=== PATIENT | female | born 1940 | race Caucasian/White ===

== ENCOUNTER 2016-10-06 14:21 | Inpatient (IN) | payer MEDICARE, OTHER ==
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
[2016-10-06 14:56] LABS: Basophils # (A) 0.1 k/uL (0-0.2); Basophils % (A) 1 %; CH 28.8; CHCM 31.5; Eosinophils # (A) 0.1 k/uL (0-0.7); Eosinophils % (A) 1 %; HDW 3.06; Hypochromasia Slight; Luc # (Auto) 0.35; Luc % (Auto) 4; Lymphocytes # (A) 1.6 k/uL (1.0-4.8); Lymphocytes % (A) 19 %; MCHC 30.6 g/dL (31.0-37.0); MCV 91.6 fL (80.0-100.0); Monocytes # (A) 0.9 k/uL (0-1.0); Monocytes % (A) 11 %; Neutrophils # (A) 5.4 k/uL (1.3-7.7); Neutrophils % (A) 65 %; RBC 1.48 m/uL (3.80-5.40); RDW 14.6 % (11.5-15.5); WBC 8.3 k/uL (3.8-10.6); WBC (Perox) 8.41
[2016-10-06 15:09] LABS: ALT 34 U/L (9-52); AST 46 U/L (14-36); Alkaline Phosphatase 65 U/L (38-126); Anion Gap 11 mmol/L; Blood Urea Nitrogen 32 mg/dL (7-17); Calcium 7.7 mg/dL (8.4-10.2); Carbon Dioxide 29 mmol/L (22-30); Chloride 104 mmol/L (98-107); Glucose 104 mg/dL (74-99); Magnesium 1.8 mg/dL (1.6-2.3); Non-African American GFR(MDRD) >60 (>60 ml/min/1.73 sqM); Potassium 3.9 mmol/L (3.5-5.1); Sodium 144 mmol/L (137-145); Total Bilirubin 0.6 mg/dL (0.2-1.3); Total Protein 5.9 g/dL (6.3-8.2)
[2016-10-06 15:11] LABS: INR 1.1 (<1.1); Partial Thromboplastin Time 21.8 sec (22.0-30.0); Prothrombin Time 11.3 sec (9.0-12.0)
[2016-10-06 15:12] LABS: HCT 13.6 % (34.0-46.0); HGB 4.2 gm/dL (11.4-16.0)
--- NOTE | 2016-10-06 15:13 | XR ---
EXAMINATION TYPE: XR chest 2V DATE OF EXAM: 10/06/2016 3:08 PM COMPARISON: Prior chest x-ray 21 October 2015, chest CT first of November 2015 HISTORY: Cough and shortness of breath TECHNIQUE: Frontal and lateral views of the chest are obtained. FINDINGS: Patient is rotated. Heart size may be accentuated by rotation. Interstitium and central va scularity are prominent. Pacemaker is unchanged, there are overlying cardiac leads. Left upper lobe s carring. No pneumothorax or pleural effusion evident. IMPRESSION: Findings could represent pulmonary venous hypertension and interstitial edema. Rotated e xam, correlate follow-up as indicated.
[2016-10-06 15:49] LABS: Creatine Kinase MB 1.5 ng/mL (0.0-2.4)
[2016-10-06] MEDS ORDERED: NALOXONE 0.4 MG/ML 1 ML VIAL IV PRN (16:05)
[2016-10-06] MEDS ORDERED: ACETAMINOPHEN TAB 325 MG TAB PO PRN ×2 (16:05→16:07)
[2016-10-06] MEDS ORDERED: ALBUTEROL NEBULIZED 2.5 MG/3 ML INHALATION PRN (16:07)
[2016-10-06] MEDS ORDERED: LOPERAMIDE 2 MG CAP PO PRN (16:07)
[2016-10-06] MEDS ORDERED: BISACODYL 10 MG SUPP RECTAL PRN (16:07)
[2016-10-06] MEDS ORDERED: MAGNESIUM HYDROXIDE 2,400 MG/10 ML CUP PO PRN (16:07)
[2016-10-06 17:10] LABS: Reticulocyte % 1.8 % (0.5-2.0)
[2016-10-06 17:23] LABS: % Iron Saturation 12.6 % (20-50)
[2016-10-06] MEDS: SODIUM CHLORIDE 0.9% 1,000 ML IV SCH (17:41)
[2016-10-06 19:28] LABS: Glucose,Whole Blood 130 mg/dL (75-99)
[2016-10-06] MEDS: risperiDONE 0.25 MG TAB PO SCH (20:02)
[2016-10-06] MEDS: FERROUS SULFATE 325 MG TAB PO SCH (20:02)
[2016-10-06] MEDS: NYSTATIN 100,000 UNIT/GM OINT 30 GM TUBE TOPICAL SCH (20:02)
[2016-10-06] MEDS: FAMOTIDINE 20 MG TAB PO SCH (20:02)
[2016-10-06] MEDS: ZINC OXIDE 20% OINT 28.4 GM TUBE TOPICAL SCH (20:02)
[2016-10-06] MEDS ORDERED: Potassium Replacement Protocol 1 EACH MISC MISCELLANE PRN (20:09)
[2016-10-06] MEDS ORDERED: RX INFO: IV CONTRAST WAS GIVEN 1 EACH MISC MISCELLANE PRN (20:26)
[2016-10-06] MEDS ORDERED: FUROSEMIDE 10 MG/ML 4 ML VIAL IV STA (20:28)
[2016-10-06 20:54] VITALS: BMI 42.3
[2016-10-06] MEDS ORDERED: POTASSIUM CHLORIDE ER 20 MEQ TAB.ER PO SCH (21:00)
[2016-10-06] MEDS ORDERED: Magnesium Replacement Protocol 1 EACH MISC MISCELLANE PRN (21:14)
[2016-10-06] MEDS: MAGNESIUM SULFATE-D5W PMX 1 GM in DEXTROSE/WATER 1 100ML.BAG IVPB SCH ×2 (21:35→22:32)
[2016-10-06] MEDS ORDERED: CARVEDILOL 6.25 MG TAB PO STA (23:04)
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
--- NOTE | 2016-10-07 01:00 | CT ---
EXAMINATION TYPE: CT chest abdomen w con DATE OF EXAM: 10/07/2016 12:50 AM COMPARISON: 11/11/2015 HISTORY: left axillary hematoma CT DLP: 3274.80 mGycm Automated exposure control for dose reduction was used. CONTRAST: Performed with IV Contrast, patient injected with 100 mL of Omnipaque 300. FINDINGS: There is some patchy infiltrate and atelectasis at the left posterior lung base. There is no evidence of a pneumothorax. I see no displaced rib fracture. There is a 15 x 7 cm area of high density in the subcutaneous tissues in the left axillary region con sistent with an acute hematoma. There is no evidence of aortic dissection. There is mild ectasia of the ascending aorta. Aorta measur es 4.4 cm. There is a pacemaker anterior to the apparent left axillary hematoma. Liver spleen pancreas gallbladder appear normal. Bile ducts are not dilated. There is no adrenal mass . Kidneys show satisfactory contrast opacification. There is no hydronephrosis. Abdominal aorta is at heromatous. There is no retroperitoneal adenopathy. There is no ascites. I see no intestinal wall thi ckening. IMPRESSION: LARGE HIGH ATTENUATION LEFT AXILLARY MASS CONSISTENT WITH AN ACUTE SUBCUTANEOUS HEMATOMA. NO PNEUMOTH ORAX. NO RIB FRACTURE SEEN. ATHEROSCLEROTIC VASCULAR DISEASE. 4.4 CM ANEURYSM OF THE SMA AND AORTA IS STABLE COMPARED TO 11/11/2015 CT SCAN. THERE IS NEW INFILTRATE AND ATELECTASIS IN THE LEFT LOWER LOBE COMPARED TO OLD EXAM.
[2016-10-07 02:35] LABS: Aty Lym Flag Slight; CH 28.4; CHCM 31.6; HCT 24.8 % (34.0-46.0); HDW 3.47; Hypochromasia Moderate; MCH 28.8 pg (25.0-35.0); MCHC 31.8 g/dL (31.0-37.0); MCV 90.6 fL (80.0-100.0); Poikilocytosis Slight; RBC 2.73 m/uL (3.80-5.40); RDW 15.1 % (11.5-15.5); WBC 6.9 k/uL (3.8-10.6); WBC (Perox) 7.08
[2016-10-07 02:38] LABS: HGB 7.9 gm/dL (11.4-16.0)
[2016-10-07 02:46] LABS: Add Differential Manual Differential
[2016-10-07 02:50] LABS: Band Neutrophils % 1.5 %; Metamyelocytes % 2.5 %; Nucleated Red Blood Cells 0 /100 WBC (0-0); Total Cells Counted 200
[2016-10-07 02:51] LABS: Manual Review Performed
[2016-10-07 02:52] LABS: Polychromasia Present
[2016-10-07] MEDS ORDERED: Potassium Replacement Protocol 1 EACH MISC MISCELLANE PRN (03:13)
[2016-10-07] MEDS: POTASSIUM CHLORIDE ER 20 MEQ TAB.ER PO SCH (03:50)
[2016-10-07 07:03] LABS: Aty Lym Flag Slight; CH 28.8; CHCM 32.9; HCT 25.7 % (34.0-46.0); HDW 3.71; HGB 8.5 gm/dL (11.4-16.0); Hypochromasia Slight; MCH 29.1 pg (25.0-35.0); MCV 88.3 fL (80.0-100.0); Mean Platelet Volume 8.1; Poikilocytosis Slight; RBC 2.91 m/uL (3.80-5.40); RDW 15.3 % (11.5-15.5); WBC (Perox) 6.81
[2016-10-07 07:43] LABS: ALT 30 U/L (9-52); AST 50 U/L (14-36); Alkaline Phosphatase 59 U/L (38-126); Anion Gap 10 mmol/L; Blood Urea Nitrogen 31 mg/dL (7-17); Calcium 8.1 mg/dL (8.4-10.2); Carbon Dioxide 27 mmol/L (22-30); Chloride 109 mmol/L (98-107); Glucose 94 mg/dL (74-99); Magnesium 2.2 mg/dL (1.6-2.3); Non-African American GFR(MDRD) >60 (>60 ml/min/1.73 sqM); Phosphorous 3.2 mg/dL (2.5-4.5); Potassium 5.2 mmol/L (3.5-5.1); Sodium 146 mmol/L (137-145)
--- NOTE | 2016-10-07 08:03 | XR ---
EXAMINATION TYPE: XR chest 1V portable DATE OF EXAM: 10/07/2016 6:22 AM COMPARISON: 10/06/2016 INDICATION: Short of breath TECHNIQUE: Single frontal view of the chest is obtained. FINDINGS: The heart size is normal. The pulmonary vasculature is normal. Minimal infiltrate in the retrocardiac region. This may be increasing from prior study. Correlate for atelectasis. Developing pneumonia could be considered. IMPRESSION: 1. Developing retrocardiac infiltrate. Follow-up is recommended.
[2016-10-07 08:31] LABS: Add Differential Manual Differential
[2016-10-07 08:36] LABS: Band Neutrophils % 0.5 %; Myelocytes % 0.5 %; Nucleated Red Blood Cells 1 /100 WBC (0-0); Total Cells Counted 200
[2016-10-07 08:37] LABS: Polychromasia Present; Toxic Vacuolation Present
[2016-10-07 08:39] LABS: Toxic Granulation Present
[2016-10-07] MEDS: DONEPEZIL 5 MG TAB PO SCH (08:58)
[2016-10-07] MEDS: FUROSEMIDE 40 MG TAB PO SCH (08:58)
[2016-10-07] MEDS: FAMOTIDINE 20 MG TAB PO SCH ×2 (08:58→17:35)
[2016-10-07] MEDS: LORATADINE 10 MG TAB PO SCH (08:58)
[2016-10-07] MEDS: ZINC OXIDE 20% OINT 28.4 GM TUBE TOPICAL SCH ×2 (08:59→21:29)
[2016-10-07] MEDS: risperiDONE 0.5 MG TAB PO SCH (08:59)
[2016-10-07] MEDS: POTASSIUM CHLORIDE ER 10 MEQ TAB.ER.PRT PO SCH (08:59)
[2016-10-07] MEDS: NYSTATIN 100,000 UNIT/GM OINT 30 GM TUBE TOPICAL SCH ×2 (08:59→21:29)
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
[2016-10-07] MEDS: CYANOCOBALAMIN 500 MCG TAB PO SCH (13:55)
[2016-10-07] MEDS: SERTRALINE 25 MG TAB PO SCH (16:18)
[2016-10-07] MEDS: SODIUM CHLORIDE 0.9% 1,000 ML IV SCH (16:18)
[2016-10-07] MEDS: FERROUS SULFATE 325 MG TAB PO SCH (17:35)
--- NOTE | 2016-10-07 20:54 | P.PN ---
Subjective 75 yr old with h/o dementia is admitted to the hospital with a HB of aroud 5gm/ dl. Pt was on eliquis for chronic atrial fibrillation. Pt has dementia as baseline, was apparently noted to have a fall 2 days ago as reported to the RN by the NH/ Family. Pt was evaluated in the ED< was noted to have a stable bp, however a repeat HB was 4.2gm/dl. Most of the history is obtained from chart review. Pt has a history of tachy varsha syndrome, a pacemaker was placed in the past VVIR rate adjusted to 60 bpm at baseline, done by DR lam. A hemoccult was negative in the ER. Pt was noted to have overt nausea, hemetemesis or bleeding per rectum. Denies having any chest pain, palpitations or any other complaints , however has dementia at baseline. During my examingtion. Pt complaints of pain in her right axilla, and in her right flank. NO fevers were reported. EKG was noted that pt was in a fib. 10/07/16 No new overnight events. HB is stable no signs of overt bleeding. Objective - Vital Signs Vital signs: Vital Signs Temp 97.2 F L 10/07/16 18:00 Pulse 66 10/07/16 18:00 Resp 20 10/07/16 18:00 BP 131/56 10/07/16 18:00 Pulse Ox 100 10/07/16 18:00 Intake & Output 10/07/16 10/07/16 10/08/16 06:59 18:59 06:59 Intake Total 960 260 Output Total 3400 900 Balance -2440 -640 Weight 130 kg 130 kg Intake: IV 340 160 Magnesium Sulfate-D5w Pmx 200 1 gm In Dextrose/Water 1 100ml.bag @ 100 mls/hr IVPB Q1H LATISHA Rx#: [id number] Sodium Chloride 0.9% 1, 140 160 000 ml @ 20 mls/hr IV . Q24H LATISHA Rx#:[id number] Oral 100 Blood Product 620 Rc As-1 Unit 310 [id number] Rc As-1 Unit 310 [id number] Output: Urine 3400 900 Other: Voiding Method Indwelling Catheter Diaper # Voids 0 # Bowel Movements 0 - Exam Gen mary ann: alert to self does not appear to be in distress Neck is supple no jvd Heart Irregularly irregular. NO murmurs appreciated. Lungs crackles at the bases, however limited due to body habitus Skin; Large ecchymosis on the left axillary area, tender to palpation, does not appear to extend into the area of pacemaker AbdomenL lower left flank tenderness, mild ecchymosis. Tenderness on pelvic movement. No organomegaly, bowel sounds intact. Neuro Moves all four extremiies, Rest of the exam deferred due to dementia. - Labs CBC & Chem 7: 10/07/16 06:50 10/07/16 06:50 Labs: Abnormal Lab Results - Last 24 Hours (Table) 10/07/16 10/07/16 10/07/16 Range/Units 02:10 06:50 06:50 RBC 2.73 L 2.91 L (3.80-5.40) m/uL Hgb 7.9 L D 8.5 L (11.4-16.0) gm/dL Hct 24.8 L 25.7 L (34.0-46.0) % Lymphocytes # (Manual) 0.8 L (1.0-4.8) k/uL Monocytes # (Manual) 1.1 H (0-1.0) k/uL Nucleated RBCs 1 H (0-0) /100 WBC Sodium 146 H (137-145) mmol/L Potassium 5.2 H (3.5-5.1) mmol/L Chloride 109 H (98-107) mmol/L BUN 31 H (7-17) mg/dL Calcium 8.1 L (8.4-10.2) mg/dL AST 50 H (14-36) U/L Total Protein 6.0 L (6.3-8.2) g/dL Albumin 2.6 L (3.5-5.0) g/dL Microbiology - Last 24 Hours (Table) 10/06/16 21:15 Urine Culture - Preliminary Urine,Catheterized Presumptive Staph aureus Strep agalactiae - (group b) Assessment and Plan Plan: 1: acute blood loss anemia in a pt with iron deficiency anemia, unknown source, extra GI sources including the hematoma could be attributed.Last known Hb was 11.4 in jul, 2016. 2. Dementia 3. Sick sinus syndrome 4. Chronic atrial fibrillation 5. HTN 6. H/o of Syncope 7. Recent fall on anticoagulation. 8. dyslipidemia Acute hypoxic respiratory failure due to above 10. Chronic systolic failure. Plan HR better controlled CT scan reviewed. Outline marked HB stable D/c coumadin as risks outweight benefits. Triage to med telemetry floor.
[2016-10-07] MEDS: risperiDONE 0.25 MG TAB PO SCH (21:30)
[2016-10-08 07:14] VITALS: BP 123/59; PULSE 60; RESP 20; TEMP 98
[2016-10-08] MEDS: ZINC OXIDE 20% OINT 28.4 GM TUBE TOPICAL SCH (08:15)
[2016-10-08] MEDS: NYSTATIN 100,000 UNIT/GM OINT 30 GM TUBE TOPICAL SCH (08:15)
[2016-10-08] MEDS: FUROSEMIDE 40 MG TAB PO SCH (08:15)
[2016-10-08] MEDS: DONEPEZIL 5 MG TAB PO SCH (08:15)
[2016-10-08] MEDS: POTASSIUM CHLORIDE ER 10 MEQ TAB.ER.PRT PO SCH (08:15)
[2016-10-08] MEDS: LORATADINE 10 MG TAB PO SCH (08:15)
[2016-10-08] MEDS: risperiDONE 0.5 MG TAB PO SCH (08:15)
[2016-10-08] MEDS: FAMOTIDINE 20 MG TAB PO SCH (08:15)
[2016-10-08 09:31] LABS: Basophils # (A) 0.1 k/uL (0-0.2); Basophils % (A) 1 %; CH 28.5; CHCM 31.1; Eosinophils # (A) 0.2 k/uL (0-0.7); Eosinophils % (A) 3 %; HCT 26.1 % (34.0-46.0); HDW 3.48; HGB 8.2 gm/dL (11.4-16.0); Hypochromasia Moderate; Luc # (Auto) 0.14; Luc % (Auto) 2; Lymphocytes # (A) 0.7 k/uL (1.0-4.8); Lymphocytes % (A) 12 %; MCH 28.8 pg (25.0-35.0); MCHC 31.3 g/dL (31.0-37.0); MCV 92.1 fL (80.0-100.0); Mean Platelet Volume 7.7; Monocytes # (A) 0.6 k/uL (0-1.0); Monocytes % (A) 10 %; Neutrophils # (A) 4.2 k/uL (1.3-7.7); Neutrophils % (A) 72 %; Poikilocytosis Slight; RBC 2.84 m/uL (3.80-5.40); RDW 15.3 % (11.5-15.5); WBC 5.8 k/uL (3.8-10.6); WBC (Perox) 6.29
[2016-10-08 09:49] LABS: ALT 44 U/L (9-52); AST 39 U/L (14-36); Alkaline Phosphatase 71 U/L (38-126); Anion Gap 9 mmol/L; Blood Urea Nitrogen 27 mg/dL (7-17); Carbon Dioxide 28 mmol/L (22-30); Chloride 107 mmol/L (98-107); Creatine Kinase 99 U/L (30-135); Glucose 113 mg/dL (74-99); Non-African American GFR(MDRD) >60 (>60 ml/min/1.73 sqM); Potassium 3.8 mmol/L (3.5-5.1); Sodium 144 mmol/L (137-145); Total Protein 5.8 g/dL (6.3-8.2)
[2016-10-08] MEDS: CYANOCOBALAMIN 500 MCG TAB PO SCH (11:17)
--- NOTE | 2016-10-08 12:14 | P.DS ---
Providers Date of admission: 10/06/16 16:05 Attending physician: Pedro Luis Mora MD Primary care physician: Sedrick Victoria Hospital Course: 75 yr old with h/o dementia is admitted to the hospital with a HB of aroud 5gm/ dl. Pt was on eliquis for chronic atrial fibrillation. Pt has dementia as baseline, was apparently noted to have a fall 2 days ago as reported to the RN by the NH/ Family. Pt was evaluated in the ED< was noted to have a stable bp, however a repeat HB was 4.2gm/dl. Most of the history is obtained from chart review. Pt has a history of tachy varsha syndrome, a pacemaker was placed in the past VVIR rate adjusted to 60 bpm at baseline, done by DR lam. A hemoccult was negative in the ER. Pt was noted to have overt nausea, hemetemesis or bleeding per rectum. Denies having any chest pain, palpitations or any other complaints , however has dementia at baseline. During my examingtion. Pt complaints of pain in her right axilla, and in her right flank. NO fevers were reported. EKG was noted that pt was in a fib. 10/07/16 No new overnight events. HB is stable no signs of overt bleeding. On the day of discharge patient was doing well. No diarrhea urinary symptoms were reported. A computed tomography scan of the chest was done which reported a subcutaneous hematoma likely from a recent fall at the [facility]. Hemoglobin was stable No overnight telemetry abnormalities were reported. - Exam Gen mary ann: alert to self does not appear to be in distress Neck is supple no jvd Heart Irregularly irregular. NO murmurs appreciated. Lungs crackles at the bases, however limited due to body habitus Skin; Large ecchymosis on the left axillary area, tender to palpation, does not appear to extend into the area of pacemaker AbdomenL lower left flank tenderness, mild ecchymosis. Tenderness on pelvic movement. No organomegaly, bowel sounds intact. Neuro Moves all four extremiies, Rest of the exam deferred due to dementia. Plan: 1: acute blood loss anemia in a pt with iron deficiency anemia, unknown source, extra GI sources including the hematoma could be attributed.Last known Hb was 11.4 in jul, 2016. 2. Dementia 3. Sick sinus syndrome 4. Chronic atrial fibrillation 5. HTN 6. H/o of Syncope 7. Recent fall on anticoagulation. 8. dyslipidemia Acute hypoxic respiratory failure due to above 10. Chronic systolic failure. Discontinue anticoagulation in this patient who has advanced dementia who had recently fell. We'll continue with aspirin the risks of anticoagulation outweigh the benefits of preventing stroke. be transferred back to [facility]. Patient Condition at Discharge: Stable Plan - Discharge Summary New Discharge Prescriptions: Aspirin [Adult Low Dose Aspirin EC] 81 mg PO DAILY #30 tablet.dr Discharge Medication List Magnesium Hydroxide [Milk of Magnesia Concentrate] 30 ml PO BID PRN 01/19/14 [ History] Acetaminophen Tab [Tylenol] 650 mg PO Q4H PRN 02/12/15 [History] Bisacodyl 10 mg RECTAL DAILY PRN 02/12/15 [History] Donepezil [Aricept] 5 mg PO DAILY 02/12/15 [History] Loperamide [Imodium] 4 mg PO DAILY PRN 02/12/15 [History] Na Phos,M-B/Na Phos,Di-Ba [Fleet Enema] 133 ml RC DAILY PRN 02/12/15 [History] Potassium Chloride ER [K-Dur 10] 10 meq PO DAILY 02/12/15 [History] Sertraline [Zoloft] 25 mg PO DAILY@1400 02/12/15 [History] risperiDONE [RisperDAL] 0.25 mg PO HS 02/12/15 [History] risperiDONE [RisperDAL] 0.5 mg PO DAILY 02/12/15 [History] Zinc Oxide 20% Oint 1 applic TOPICAL BID 10/15/15 [History] Albuterol Nebulized [Ventolin Nebulized] 2.5 mg INHALATION RT-Q6H PRN 08/23/16 [ History] Famotidine [Pepcid] 20 mg PO AC-BID 08/23/16 [History] Nystatin 100,000 Unit/gm Oint [Mycostatin Oint] 1 applic TOPICAL BID 08/23/16 [ History] Cyanocobalamin [Vitamin B-12] 500 mcg PO DAILY 10/06/16 [History] Ferrous Sulfate [Iron (65 MG Elemental)] 325 mg PO DAILY@1700 10/06/16 [History] Furosemide [Lasix] 40 mg PO DAILY 10/06/16 [History] Loratadine [Claritin] 10 mg PO DAILY 10/06/16 [History] guaiFENesin-DM 100-10MG/5ML [Robitussin DM] 10 ml PO QID PRN 10/06/16 [History] Aspirin [Adult Low Dose Aspirin EC] 81 mg PO DAILY #30 tablet. 10/08/16 [Rx] Follow up Appointment(s)/Referral(s): Sedrick Victoria MD [Primary Care Provider] - 1-2 days Discharge Disposition: TRANSFER TO SNF/ECF
[2016-10-08] MEDS: SERTRALINE 25 MG TAB PO SCH (14:09)
== END 2016-10-08 15:31 | DRG 811 ==
LOC: EC 14:21 → 6SEL 16:05 → 6ICU 18:15 → 4MS4W 10-07 16:58
PROVIDERS: ADMIT Internal Medicine; ATTEND Internal Medicine
PROC: 30233N1 Transfusion of Nonautologous Red Blood Cells into Peripheral Vein, Percutaneous Approach (ICD-10-PCS; principal; 2016-10-06)
DX: D62 Acute posthemorrhagic anemia (principal); J96.01 Acute respiratory failure with hypoxia; Z68.41 Body mass index [BMI] 40.0-44.9, adult; D50.9 Iron deficiency anemia, unspecified; I50.9 Heart failure, unspecified; I11.0 Hypertensive heart disease with heart failure; E66.01 Morbid (severe) obesity due to excess calories; F03.90 Unspecified dementia, unspecified severity, without behavioral disturbance, psychotic disturbance, mood disturbance, and anxiety; I48.2 Chronic atrial fibrillation; S20.219A Contusion of unspecified front wall of thorax, initial encounter; F32.9 Major depressive disorder, single episode, unspecified; I25.10 Atherosclerotic heart disease of native coronary artery without angina pectoris; M19.90 Unspecified osteoarthritis, unspecified site; E03.9 Hypothyroidism, unspecified; G89.29 Other chronic pain; M54.9 Dorsalgia, unspecified; I73.00 Raynaud's syndrome without gangrene; H91.90 Unspecified hearing loss, unspecified ear; E78.5 Hyperlipidemia, unspecified; Z95.0 Presence of cardiac pacemaker; Z92.3 Personal history of irradiation; Z85.42 Personal history of malignant neoplasm of other parts of uterus; Z86.14 Personal history of Methicillin resistant Staphylococcus aureus infection; Z90.710 Acquired absence of both cervix and uterus; Z79.01 Long term (current) use of anticoagulants; Z79.899 Other long term (current) drug therapy; W19.XXXA Unspecified fall, initial encounter; Y92.129 Unspecified place in nursing home as the place of occurrence of the external cause
CPT/HCPCS: 36415; 71010; 71020; 71260; 74160; 80053; 82272; 82550; 82553; 82607; 82746; 83540; 83550; 83735; 83880; 84100; 84132; 85025; 85045; 85610; 85730; 86850; 86870; 86880; 86900; 86901; 86902; 86920; 87077; 87086; 87186; 99291